=== PATIENT | female | born 1980 | race Caucasian/White ===

== ENCOUNTER → 2016-11-19 | Day surgery (SDC) | payer OTHER ==
[~2016-11-19] VITALS: Ht 182.9 cm; Wt 90.7 kg
[~2016-11-19] MED LIST: AZEL0.1S3; AZEL20CR EXT; CENTTAB36 PO; FAMO1TAB25 PO; IBUPROFEN 600 MG TAB PO PRN; KETOROLAC 60 MG/2 ML VIAL (J1885) As Ordered ONE; LEXA1TAB PO; LIDOCAINE 2% INJ 100 MG/5 ML SDV (FOR ANES.) As Ordered ONE; LR 1,000 ML IV SCH; MIDAZOLAM INJ 2 MG/2 ML VIAL (J2250) As Ordered ONE; NECO1TAB9 PO; NORCO, ANEXSIA 5/325MG TABLET (HYDROcodone/ACETAMINOPHEN) PO PRN; ONDANSETRON 4MG/2ML VIAL (J2405) As Ordered ONE; ONDANSETRON 4MG/2ML VIAL (J2405) IV PRN; PERCOCET 5MG/325MG TAB PO PRN; PERF50TA PO; PROPOFOL 200 MG/20 ML VIAL As Ordered ONE; ROCURONIUM BROMIDE 50 MG/5 ML VIAL As Ordered ONE; SUGAMMADEX SODIUM 500 MG/5 ML VIAL (BRIDION) As Ordered ONE; VITA100054 PO; VITATAB11 PO; [UNRECOGNIZED DRUG - CODE] PO; dexameTHASONE 4 MG/ML 1ML VIAL (J1100) As Ordered ONE; fentaNYL 100 MCG/2 ML INJECTION (J3010) As Ordered ONE; fentaNYL 100 MCG/2 ML INJECTION (J3010) IV PRN
[2016-11-19 12:20] LABS: CONTROL LINE HCG INT CTR LINE PRESENT
[2016-11-19 19:59] VITALS: BP 142/88
--- NOTE | 2016-11-20 12:47 | RO ---
DATE OF PROCEDURE: 11/19/2016 PREOPERATIVE DIAGNOSIS: Dysmenorrhea, menorrhagia and desire for permanent sterilization. POSTOPERATIVE DIAGNOSIS: Dsymenorrhea, menorrhagia and desire for permanent sterilization. PROCEDURE: Dilation and curettage (D and C). Hysteroscopy. NovaSure ablation. Laparoscopy with bilateral tubal ligation. SURGEON: Dr. 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 She is 6 feet tall and I could not reach it without putting in a new hole and given that her complaints were mostly about the bleeding than her desire for tubal, we did not make an extra wound just to sample this, so there was no biopsy, but there certainly is suspicion that there may be a small area of endometriosis as noted in the pictures. There are no other areas anteriorly. The ovarian fossa are clear and the upper abdomen is clear. It is only the left uterosacral, not the right. BRIEF DESCRIPTION OF PROCEDURE AND FINDINGS: Michelle was brought to the operating room where sufficient general endotracheal anesthesia was induced and she was prepped, draped and positioned in the usual sterile fashion. The uterus was sounded to 9. Then a cervical cavity length of 4 giving an endometrial cavity length of 5, which was used for the ablation. We subsequently got a width of 4, but this was not known at this point. A uterine manipulator was placed and attention was turned to the abdomen. A transverse incision was made below the umbilicus over the line of her previous laparoscopy scar. Dissection was continued to the level of the rectus fascia which was elevated with Yuly clamps, transversely incised and secured with #0 Vicryl tension sutures. Then the peritoneum entered under direct visualization using S retractors. The Tinsley cannula was then placed and secured in place with a #0 Vicryl retention suture. CO2 insufflation was then begun. After adequate CO2 insufflation, the peritoneal cavity was visualized. There were normal shiny peritoneal surfaces throughout. There were no ascites, exudate, nor excrescences. The upper abdomen was clear despite her history of surgery. There were two minor adhesions of the descending colon that did not distort or move it particularly. These actually appear to be post infectious, although of course one cannot tell just by looking. The pelvis itself was normal in appearance initially. Subsequent deep investigation did show a small possible endometriotic implant on the left uterosacral, but no other ones. The ovaries themselves were clear, mobile. No lesions. The tubes were clear, mobile and no lesions. The anterior cul-de-sac clear, the sidewalls clear. The posterior cul-de-sac itself was clear, as was the right uterosacral, but the left had this questionable lesion, so very minor changes if that is what that is. As noted above, patient is 6 feet tall and I could not reach with the operative scope and I really did not think it was worth putting an extra wound in the patient just for that. We turned our attention to the tubes. They were identified to the fimbriated end and then cauterized in four separate locations on each tube using the bipolar cautery with good cauterization achieved. After the bilateral tubal cauterization, this portion of the procedure was ended. The CO2 was allowed to escape the abdomen. The instruments removed. The fascial wound closed with the #0 retention sutures and #3-0 Vicryl used in subcuticular stitch to close the skin wound. A dry sterile dressing then applied. Attention was then turned to the pelvis where the uterine manipulator was removed. The hysteroscope was placed and used to visualize the endometrial cavity, which was normal in appearance. Curettage was carried out. Then, the NovaSure ablative device placed. Again, length was measured at 5, width measured at 4, and an uncomplicated NovaSure ablation was then carried out. The procedure was then ended. Estimated blood loss for the procedure was maybe 5 mL. Fluid replacement was crystalloid. Complications: None. Condition and Disposition: Michelle tolerated the procedure well and was recovering in the recovery room in good condition.
== END | disposition home or self-care (01) ==
LOC: M SDC 11:03
PROVIDERS: ATTEND Obstetrics & Gynecology
DX: N94.6 Dysmenorrhea, unspecified (principal); N92.0 Excessive and frequent menstruation with regular cycle; Z30.2 Encounter for sterilization; Z98.84 Bariatric surgery status; F41.9 Anxiety disorder, unspecified; F32.9 Major depressive disorder, single episode, unspecified; Z79.899 Other long term (current) drug therapy
CPT/HCPCS: 36415; 58563; 58670; 84703; 86850; 86900; 86901; 88305; C2618; J1100; J1885; J2250; J2405; J3010